=== PATIENT | female | born 1990 | race Caucasian/White ===

== ENCOUNTER 2018-08-20 13:01 | Emergency (ER) | payer OTHER ==
[2018-08-20 14:09] VITALS: BP 117/68
--- NOTE | 2018-08-20 14:21 | UC ---
UC General HPI - HPI Summary HPI Summary: 4 DAYS OF WORSENING COUGH, CHEST CONGESTION AND SOME SOB. FEVER 101 LAST PM. HX ASTHMA. THIS BEGAN A HEAD COLD. NO HEADACHE OR BODYACHES. - History of Current Complaint Chief Complaint: UCGeneralIllness Stated Complaint: CONGESTION Time Seen by Provider: 08/20/18 14:15 Hx Obtained From: Patient Hx Last Menstrual Period: 08/06/18 Onset/Duration: Gradual Onset Timing: Constant Pain Intensity: 6 Associated Signs & Symptoms: Negative: Chest Pain - Allergy/Home Medications Allergies/Adverse Reactions: Allergies Allergy/AdvReac Type Severity Reaction Status Date / Time amoxicillin Allergy Hives Verified 08/20/18 14:04 Penicillins Allergy Hives Verified 08/20/18 14:04 Home Medications: Home Medications BuPROPion XL* [Bupropion XL*] 150 mg PO DAILY 08/20/18 [History Confirmed ] Levothyroxine TAB* [Synthroid TAB*] 112 mcg PO 0800 08/20/18 [History Confirmed 08/20/18] Sertraline* [Zoloft*] 150 mg PO DAILY 08/20/18 [History Confirmed 08/20/18] PMH/Surg Hx/FS Hx/Imm Hx Endocrine History: Thyroid Disease Respiratory History: Asthma Psychological History: Depression - Surgical History Surgery Procedure, Year, and Place: tubal - Family History Known Family History: Positive: Non-Contributory - Social History Occupation: Employed Part-time Alcohol Use: None Substance Use Type: None Smoking Status (MU): Light Every Day Tobacco Smoker Type: Cigarettes Amount Used/How Often: 5 cigs daily Review of Systems All Other Systems Reviewed And Are Negative: Yes Constitutional: Positive: Fever Respiratory: Positive: Shortness Of Breath, Cough Physical Exam Triage Information Reviewed: Yes Appearance: Well-Appearing Vital Signs: Initial Vital Signs Temp 97.9 F 08/20/18 14:05 Pulse 73 08/20/18 14:05 Resp 15 08/20/18 14:05 BP 117/68 08/20/18 14:05 Pulse Ox 100 08/20/18 14:05 Vital Signs Reviewed: Yes Eyes: Positive: Conjunctiva Clear ENT: Positive: Pharynx normal, TMs normal. Negative: Nasal drainage Neck: Positive: Supple, Nontender, No Lymphadenopathy Respiratory: Positive: No respiratory distress, Decreased breath sounds, Other: - Bronchospatic congested cough. Cardiovascular: Positive: RRR, No Murmur Abdomen Description: Positive: Nontender, No Organomegaly, Soft Bowel Sounds: Positive: Present Musculoskeletal: Positive: ROM Intact Neurological: Positive: Alert Psychological: Positive: Age Appropriate Behavior Skin Exam: Normal Course/Dx - Differential Dx - Multi-Symptom Differential Diagnoses: Other - not c/w flu. hx asthma and fever to 101 thus will cover for presumptive secondary bacterial infection. - Diagnoses Provider Diagnosis: Acute asthma Discharge - Sign-Out/Discharge Documenting (check all that apply): Patient Departure All imaging exams completed and their final reports reviewed: No Studies - Discharge Plan Condition: Stable Disposition: HOME Prescriptions: Albuterol HFA INHALER* [Ventolin HFA Inhaler*] 2 puff INH Q6H #1 mdi Azithromycin TAB* [Zithromax TAB (Z-MARY ANN) 250 mg #6 tabs] 2 tab PO .TODAY, THEN 1 DAILY #1 mary ann predniSONE [Prednisone 20 MG TAB] 40 mg PO 10 #5 tablet Patient Education Materials: Asthma (DC) Forms: *Work Release Referrals: Eugenio Bashir [Primary Care Provider] - 7 Days - Billing Disposition and Condition Condition: STABLE Disposition: Home - Attestation Statements Provider Attestation: I was available for consult. This patient was seen by the ANGELITO. The patient was not presented to, seen by, or examined by me. -Jake
== END 2018-08-20 14:28 | disposition home or self-care (01) ==
LOC: UCCORT 13:01
DX: J45.909 Unspecified asthma, uncomplicated (principal); E07.9 Disorder of thyroid, unspecified; F32.9 Major depressive disorder, single episode, unspecified; F17.210 Nicotine dependence, cigarettes, uncomplicated; Z88.0 Allergy status to penicillin; Z79.899 Other long term (current) drug therapy
CPT/HCPCS: 99212; G0463

== ENCOUNTER 2019-08-05 10:23 | Emergency (ER) | payer OTHER ==
[2019-08-05 10:55] VITALS: BP 111/67
--- NOTE | 2019-08-05 10:57 | UC ---
Skin Complaint HPI - HPI Summary HPI Summary: 28yo female presenting with "itchy rash all over stomach" x3 days. Patient states it has slowly gotten larger and she can not stopping scratching it. Denies drainage or tenderness. Denies fever and chills. Denies URI symptoms. Denies lip, tongue, throat swelling. Patient admits she has "very sensitive skin " and recently changed her fabric softener. States "this kind of this has happened in the past" with changing products. Also adds that she recently was started on a "new medication for her hypothyroidism." States she was taking levothyroxine before but now she is unsure what the new medication is but thinks "it might be synthroid." Patient states she has been taking this for "a little over 3 weeks maybe." Denies reaction like this in the past with levothyroxine. Denies any other new foods, medications, or environmental exposures. - History of Current Complaint Chief Complaint: UCRash Stated Complaint: SKIN RASH Hx Obtained From: Patient Hx Last Menstrual Period: 07/05/19 Pain Intensity: 0 - Allergy/Home Medications Allergies/Adverse Reactions: Allergies Allergy/AdvReac Type Severity Reaction Status Date / Time amoxicillin Allergy Hives Verified 08/05/19 10:55 Penicillins Allergy Hives Verified 08/05/19 10:55 Home Medications: Home Medications Thyroid Medication 08/05/19 [History] predniSONE [Prednisone 20 MG TAB] 40 mg PO DAILY #10 tablet 08/05/19 [Rx] PMH/Surg Hx/FS Hx/Imm Hx Endocrine History: Hypothyroidism - Surgical History Surgery Procedure, Year, and Place: tubal - Family History Known Family History: Positive: Non-Contributory - Social History Alcohol Use: None Substance Use Type: None Smoking Status (MU): Light Every Day Tobacco Smoker Type: Cigarettes Amount Used/How Often: 5 cigs daily Review of Systems All Other Systems Reviewed And Are Negative: Yes Constitutional: Positive: Negative Skin: Positive: Rash - "itchy rash on stomach" ENT: Positive: Negative Respiratory: Positive: Negative Cardiovascular: Positive: Negative Gastrointestinal: Positive: Negative Musculoskeletal: Positive: Negative Neurological/Mental Status: Positive: Negative Physical Exam - Summary Physical Exam Summary: Vital Signs Reviewed: Yes A+Ox3, no distress, well-appearing Eyes: Conjunctiva Clear ENT: Hearing grossly normal, moist, uvula midline, no exudate, no erythema, no lip/tongue/throat swelling Neck: Positive: Supple Respiratory: Positive: No respiratory distress, No accessory muscle use + CTA throughout no w/r Cardiovascular: RRR nl s1, s2 no m/r Musculoskeletal Exam: OSUNA x 4 without difficulty Neurological: Positive: Alert Psychological: Positive: age appropriate behavior Skin: Positive: pruritic papules on mildly erythematous base noted diffusely over anterior abdomen, no drainage or bleeding, mild dryness and scaling noted Vital Signs: Initial Vital Signs Temp 98.8 F 08/05/19 10:50 Pulse 84 08/05/19 10:50 Resp 14 08/05/19 10:50 BP 111/67 08/05/19 10:50 Pulse Ox 100 08/05/19 10:50 Course/Dx - Course Course Of Treatment: Discussed likely irritant dermatitis with the patient. I educated on symptomatic treatment with benadryl and pepcid. Instructed to discontinue use of her new fabric softener. I provided the patient with a short course of a steroid. She states she has taken prednisone in the past for similar scenario without issues. I instructed to contact the provider who is prescribing her " new medication" to further discuss symptoms, especially if not improving or if they recur. Instructed to go to ED with any new or worsening symptom. Patient voiced understanding and agreed with the treatment plan. - Differential Diagnoses - Skin Complaint Differential Diagnoses: Allergic Reaction, Contact Dermatitis, Drug Rash, Eczema , Local Allergic Reaction - Diagnoses Provider Diagnosis: Irritant contact dermatitis Discharge ED - Sign-Out/Discharge Documenting (check all that apply): Patient Departure All imaging exams completed and their final reports reviewed: No Studies - Discharge Plan Condition: Stable Disposition: HOME Prescriptions: predniSONE [Prednisone 20 MG TAB] 40 mg PO DAILY #10 tablet Patient Education Materials: Dermatitis (ED) Referrals: Eugenio Bashir [Primary Care Provider] - Additional Instructions: Take prednisone as prescribed. You may also take benadryl or pepcid over the counter to help relieve itching. Discontinue use of any new products, including your fabric softener. Contact the provider who has prescribed your new medication to further discuss your symptoms if not improved within 5-7 days. Go to the emergency room if you experience any new or worsening symptoms, including fever, lip/tongue/throat swelling, or blistering. - Billing Disposition and Condition Condition: STABLE Disposition: Home
== END 2019-08-05 11:20 | disposition home or self-care (01) ==
LOC: UCCORT 10:23
DX: L24.89 Irritant contact dermatitis due to other agents (principal); F17.210 Nicotine dependence, cigarettes, uncomplicated; Z88.0 Allergy status to penicillin
CPT/HCPCS: 99212; G0463